=== PATIENT | female | born 1995 | race Two or more races ===

== ENCOUNTER 2017-06-02 04:11 | Emergency (ER) | payer SELFPAY ==
[~2017-06-02] VITALS: Ht 172.7 cm; Wt 60.3 kg
[2017-06-02 04:30] VITALS: BP 105/71
[2017-06-02] MEDS ORDERED: ACYCLOVIR400 MG ORAL (04:41)
[2017-06-02] MEDS ORDERED: IBUPROFEN600 MG ORAL (04:41)
[2017-06-02 04:55] VITALS: BP 105/71
--- NOTE | 2017-06-02 05:23 | Emergency Room Report ---
History of Present Illness General Chief Complaint: Skin Rash/Abscess Source: Patient Present Illness HPI 21-year-old female no significant past medical history presenting with rash to left side of chest wrapping around to her back. States that it stings. And is painful. Not itchy. States his been there for 2 days. She has had chickenpox in the past. No fever no chills Allergies: Coded Allergies: No Known Allergies (Unverified , 06/02/17) Patient History Past Medical History: see triage record Past Surgical History: none Pertinent Family History: none Last Menstrual Period: 04/30/2017 Now: No Reviewed Nursing Documentation: PMH: Agreed; PSxH: Agreed Nursing Documentation-PMH Past Medical History: No Stated History Review of Systems All Other Systems: negative except mentioned in HPI Physical Exam Vital Signs Date Time Temp Pulse Resp B/P (MAP) Pulse Ox O2 Delivery O2 Flow Rate FiO2 06/02/17 04:18 98.7 89 18 105/71 95 Room Air 98.8 Sp02 EP Interpretation: reviewed, normal General Appearance: normal inspection, well appearing, no apparent distress, alert, GCS 15, non-toxic Head: normocephalic, atraumatic Eyes: bilateral eye normal inspection, bilateral eye PERRL, bilateral eye EOMI ENT: normal ENT inspection, normal pharynx, normal voice, moist mucus membranes Neck: normal inspection, full range of motion, supple Respiratory: normal inspection, lungs clear, normal breath sounds, no respiratory distress, no retraction, no wheezing, speaking full sentences, chest symmetrical Cardiovascular #1: normal inspection, regular rate, rhythm, normal capillary refill Cardiovascular #2: 2+ radial (R), 2+ radial (L) Gastrointestinal: normal inspection, non tender, soft, non-distended, no guarding Musculoskeletal: normal inspection, back normal, normal range of motion, non- tender Neurologic: normal inspection, alert, oriented x3, responsive, motor strength/ tone normal, sensory intact, normal gait, speech normal Psychiatric: normal inspection, judgement/insight normal, memory normal Skin: other - Vesicular rash noted left chest and left back, wrapping around dermatome Medical Decision Making Diagnostic Impression: Primary Impression: Shingles ER Course 21-year-old female presenting with rash to left chest and back DDX: Herpes zoster infection/shingles Plan: Motrin ER course: Patient has remained stable during ED stay. Disposition: Patient is to be discharged to home. Prescriptions given are acyclovir Patient is instructed to follow up with their primary care doctor within 5 days. Please note that this Emergency Department Report was dictated using [employer] test engineer technology software, occasionally this can lead to erroneous entry secondary to interpretation by the dictation equipment Last Vital Signs Date Time Temp Pulse Resp B/P (MAP) Pulse Ox O2 Delivery O2 Flow Rate FiO2 06/02/17 04:55 98.8 89 18 105/71 95 Room Air 209.8 Disposition: HOME, SELF-CARE Condition: Improved Scripts Ibuprofen* (MOTRIN*) 600 Mg Tablet 600 MG ORAL Q8H PRN for For Pain, #30 TAB 0 Refills Prov: Sully Mcdaniels M.D. 06/02/17 Acyclovir* (ACYCLOVIR*) 400 Mg Tablet 800 MG ORAL FIVE TIMES A DAY for 7 Days, #70 TAB 0 Refills Prov: Sully Mcdaniels M.D. 06/02/17 Referrals: NOT CHOSEN IPA/,REFERRING (PCP) Patient Instructions: Freeman [id number] Sully Mcdaniels M.D. Jun 02, 2017 05:23
== END 2017-06-02 04:55 | disposition home or self-care (01) ==
LOC: EMR 04:37
DX: B02.9 Zoster without complications (principal)
CPT/HCPCS: 99284